=== PATIENT | female | born 1990 | race Caucasian/White ===

== ENCOUNTER 2022-09-09 09:19 | Emergency (ER) | payer BC, OTHER ==
[~2022-09-09 09:19] MED LIST: Rocuronium Bromide 10 MG/ML (10ML VIAL) ONE
[2022-09-09 10:02] LABS: #Monocytes 0.5 10x3/uL (0.0-1.1); #Neutrophils 7.8 10x3/uL (1.5-8.4); %Basophils 0.1 % (0.0-2.0); %Eosinophils 0.1 % (0.0-6.0); %Lymphocytes 6.6 % (18.0-47.0); %Monocytes 5.6 % (0.0-10.0); Hemoglobin 12.3 g/dL (12.0-15.5); Mean Corpuscular HGB CONC 31.4 g/dL (32.0-36.0); Mean Corpuscular Hemoglobin 27.7 pg (27.0-33.0); Mean Corpuscular Volume 88.3 fl (81.6-98.3); Mean Platelet Volume 9.4 fl (7.4-10.4); Platelet Count 238 10x3/uL (150-450); RBC Distribution Width 18.7 % (11.5-14.5); Red Blood Cell (RBC) Count 4.44 10x6/uL (3.90-5.03)
[2022-09-09 10:16] LABS: ALT (SGPT) 34 U/L (8-55); AST (SGOT) 43 U/L (5-34); Albumin 4.8 g/dL (3.5-5.0); Alkaline Phosphatase 222 U/L (40-110); Anion Gap 15 mmol/L (10-20); BUN (Urea Nitrogen) 22 mg/dL (7.0-18.7); Bilirubin, Total 0.4 mg/dL (0.2-1.2); Calc. Creatinine Clearance 0 mL/min (70-130); Calcium 9.8 mg/dL (7.8-10.44); Carbon Dioxide 21 mmol/L (22-29); Chloride 111 mmol/L (98-107); Estimated GFR 101; Globulin 2.8 g/dL (2.4-3.5); Glucose 120 mg/dL (70-105); Potassium 3.8 mmol/L (3.5-5.1); Protein, Total 7.6 g/dL (6.0-8.3); Sodium 143 mmol/L (136-145)
[2022-09-09 10:17] LABS: INR-International Normal Ratio 1.1; PTT 31.3 sec (22.0-33.0); Prothrombin Time 11.3 sec (9.5-12.1)
[2022-09-09] MEDS ORDERED: Fentanyl 100 MCG/2 ML VIAL ONE (10:41)
[2022-09-09] MEDS ORDERED: Mannitol 12.5 GM/50 ML IV SCH (11:00)
== END 2022-09-09 11:32 | disposition short-term general hospital (02) ==
LOC: CSHERS 09:19
DX: S02.119A Unspecified fracture of occiput, initial encounter for closed fracture (principal); S06.5XAA Traumatic subdural hemorrhage with loss of consciousness status unknown, initial encounter; W18.30XA Fall on same level, unspecified, initial encounter
CPT/HCPCS: 31500; 36415; 51702; 70450; 80053; 84484; 85025; 85610; 85730; 93005; 94760; 96374; J2150; J3010

== ENCOUNTER 2022-10-11 15:23 | Outpatient (CLI) | payer BC, OTHER | END 2022-10-11 15:24 | disposition home or self-care (01) | LOC: CSHCT 15:23 | PROVIDERS: ATTEND Surgery | DX: S06.4X9D Epidural hemorrhage with loss of consciousness of unspecified duration, subsequent encounter (principal) | CPT/HCPCS: 70450 ==

== ENCOUNTER 2023-01-30 10:45 | Outpatient (CLI) | payer BC, OTHER | END 2023-01-30 10:46 | disposition home or self-care (01) | LOC: CSHMAMMO 10:45 | PROVIDERS: ATTEND Family Medicine | DX: Z13.820 Encounter for screening for osteoporosis (principal); M81.0 Age-related osteoporosis without current pathological fracture; R63.6 Underweight | CPT/HCPCS: 77080 ==

== ENCOUNTER 2023-04-15 11:04 | Outpatient (CLI) | payer BC, OTHER | END 2023-04-15 11:05 | disposition home or self-care (01) | LOC: CSHRAD 11:04 | PROVIDERS: ATTEND Physician Assistant | DX: M79.605 Pain in left leg (principal) ==